=== PATIENT | male | born 1930 | race Caucasian/White ===

== ENCOUNTER 2017-03-19 05:19 | Day surgery (SDC) | payer OTHER, MEDICARE ==
[~2017-03-19] VITALS: Ht 152.4 cm; Wt 73.0 kg
[~2017-03-19 05:19] MED LIST: ADVIL200 MG PO; ALEVE220 M2 PO; ASPIRIN81 M2 PO
[2017-03-19 06:31] VITALS: BP 133/66
[2017-03-19] MEDS ORDERED: ULTRAM50 MG PO (08:54)
[2017-03-19 10:02] VITALS: BP 166/72
[2017-03-19 11:23] VITALS: BP 146/72
== END 2017-03-19 11:28 | disposition home or self-care (01) ==
LOC: SDC 05:19
PROC: 0YU60JZ Supplement Left Inguinal Region with Synthetic Substitute, Open Approach (ICD-10-PCS; principal; 2017-03-19)
DX: K40.90 Unilateral inguinal hernia, without obstruction or gangrene, not specified as recurrent (principal); K21.9 Gastro-esophageal reflux disease without esophagitis; Z79.82 Long term (current) use of aspirin
CPT/HCPCS: C1781; J0131; J0690; J1100; J1170; J1885; J2710; J3010